=== PATIENT | female | born 2000 | race Caucasian/White ===

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

== ENCOUNTER → 2018-03-03 | Outpatient (CLI) | payer OTHER | LOC: LABWHC1 15:08 | PROVIDERS: ATTEND Obstetrics & Gynecology | DX: N92.6 Irregular menstruation, unspecified (principal) | CPT/HCPCS: 36415; 84702 ==

== ENCOUNTER → 2018-10-27 | Outpatient (CLI) | payer OTHER | END | disposition home or self-care (01) | LOC: LABWHC1 13:52 | PROVIDERS: ATTEND Obstetrics & Gynecology | DX: N92.6 Irregular menstruation, unspecified (principal) | CPT/HCPCS: 36415; 84702 ==

== ENCOUNTER → 2019-05-17 | Outpatient (CLI) | payer OTHER | LOC: LABWHC1 11:58 | PROVIDERS: ATTEND Obstetrics & Gynecology | DX: N92.6 Irregular menstruation, unspecified (principal) | CPT/HCPCS: 36415; 84702 ==

== ENCOUNTER 2019-10-22 14:05 | Emergency (ER) | payer OTHER ==
[2019-10-22 14:09] VITALS: TEMP 97.8
--- NOTE | 2019-10-22 14:36 | ED ---
Chest Pain HPI - General Chief Complaint: Chest Pain Stated Complaint: chest pains Time Seen by Provider: 10/22/19 14:13 Source: patient Mode of arrival: ambulatory Limitations: no limitations - History of Present Illness Initial Comments: 18-year-old female who states she is currently but not sure how far long as she just took test presenting to the emergency department today for chest pain. States since last night she has had pain in the center of her chest that feels like a thumb pushing into her. Patient denies leg swelling, calf pain, hemoptysis, pain with deep breathing, patient denies ripping tearing pain or back pain. Denies nausea, jaw or arm pain, denies fevers, SOB, cough. Patient denies DM/HTN, cardiac history, Denies IVDU or cocaine use. Patient denies specific alleviating or aggrevating factors. Denies vaginal bleeding, or pelvic pain. Remaining ROS (-). Upon arrival patient appears well there is no signs of acute distress. - Related Data Home Medications Medication Instructions Recorded Confirmed Mdo-Kelh-Javnu Acid 1 cap PO DAILY 06/25/17 11/01/17 [-U Capsule (formulary)] Acetaminophen Tab [Tylenol Tab] 650 mg PO Q4H 11/01/17 11/01/17 Previous Rx's Medication Instructions Recorded HYDROcodone/APAP 7.5-325MG [[place] 1 each PO Q6H PRN #12 tab 11/28/17 7.5-325] Ibuprofen [Motrin] 600 mg PO Q6HR PRN #60 tab 11/28/17 Allergies Allergy/AdvReac Type Severity Reaction Status Date / Time No Known Allergies Allergy Verified 10/22/19 14:09 Review of Systems ROS Statement: Those systems with pertinent positive or pertinent negative responses have been documented in the HPI. ROS Other: All systems not noted in ROS Statement are negative. Past Medical History Past Medical History: No Reported History Additional Past Medical History / Comment(s): Obstetric history: This is her first and she's had care with Dr. Benedict since 13 weeks. At her anatomy ultrasound she was noted to have a shortened cervix at 27 mm, she went to [facility] for evaluation and they found her cervix to be 31 mm, no further workup was needed after 2 visits of no cervical change. Blood type O positive, antibody is negative, HIV nonreactive, rubella immune, RPR nonreactive, hepatitis B negative, toxoplasmosis negative. History of Any Multi-Drug Resistant Organisms: None Reported Past Surgical History: Section Additional Past Surgical History / Comment(s): egd/colonoscopy Past Psychological History: Anxiety, Bipolar, Depression Smoking Status: Current every day smoker Past Alcohol Use History: None Reported Past Drug Use History: None Reported General Exam - General Exam Comments Initial Comments: General: The patient is awake and alert, in no distress, and does not appear acutely ill. Eye: Pupils are equal, round and reactive to light, extra-ocular movements are intact. No nystagmus. There is normal conjunctiva bilaterally. No signs of icterus. Ears, nose, mouth and throat: There are moist mucous membranes and no oral le sions. Neck: The neck is supple, there is no tenderness or JVD. Cardiovascular: There is a regular rate and rhythm. No murmur, rub or gallop is appreciated. Respiratory: Lungs are clear to auscultation, respirations are non-labored, breath sounds are equal. No wheezes, stridor, rales, or rhonchi. No pain with deep inspiration Gastrointestinal: Soft, non-distended, non-tender abdomen without masses or organomegaly noted. There is no rebound or guarding present. Musculoskeletal: Normal ROM, no tenderness. Strength 5/5. Sensation intact. Radialp ulses equal bilaterally 2+. Neurological: A&O x 3. CN II-XII intact, There are no obvious motor or sensory deficits. Coordination appears grossly intact. Speech is normal. Skin: Skin is warm and dry and no rashes. No leg swelling, no calf pain. Psychiatric: Cooperative, appropriate mood & affect, normal judgment. Limitations: no limitations Course Vital Signs 10/22/19 10/22/19 10/22/19 14:07 14:17 14:30 Temperature 97.8 F Pulse Rate 104 H 104 H 101 H Respiratory 18 15 15 Rate Blood Pressure 109/43 106/66 O2 Sat by Pulse 100 100 100 Oximetry 10/22/19 10/22/19 10/22/19 15:00 15:30 16:00 Temperature Pulse Rate 96 97 96 Respiratory 14 12 14 Rate Blood Pressure 106/66 105/68 105/68 O2 Sat by Pulse 100 100 100 Oximetry 10/22/19 16:30 Temperature Pulse Rate Respiratory Rate Blood Pressure 126/80 O2 Sat by Pulse Oximetry Chest Pain MDM - MDM 18yo female presenting for CP, no SOB. Dimer (-). no peripheral evidence of DVT. Patient refused CTA i discussed how she is high risk but she states she does not want to go forward with the CTA given the risk of radiation to the baby, I did state that avoiding the CTA could risk her life/disability but she continued to refuse stating the pain is better. No IUP at this time whihc is consistent with patient HCG. No pelvic pain. Patient will be discharge with PCP and OBGYN f/u. Repeat HCG was ordered. Strict return parameters for SOB, or return of CP were discussed patient verbalized understanding and was discharged appearing well after discussing hx, and laboratory/vital signs of attending provider. Disposition Clinical Impression: Chest pain Disposition: HOME SELF-CARE Condition: Good Instructions (If sedation given, give patient instructions): Chest Pain (ED) Additional Instructions: Please use medication as discussed. Please follow-up with family doctor in the next 2 days-IMMEDIATE return for worsening symptoms, shortness of breath, fevers, leg swelling. Follow-up with OBGYN, repeat HCG in 2 days. Please return to emergency room if the symptoms increase or worsen or for any other concerns. Is patient prescribed a controlled substance at d/c from ED?: No Referrals: Madhu Chan MD [Primary Care Provider] - 1-2 days Tremayne Castellanos MD [STAFF PHYSICIAN] - 1-2 days Bell Rahman DO [Doctor of Osteopathic Medicine] - 1-2 days Time of Disposition: 16:53
[2019-10-22 15:20] LABS: Basophils # (A) 0.1 k/uL (0-0.2); Basophils % (A) 1 %; Eosinophils # (A) 0.2 k/uL (0-0.7); Eosinophils % (A) 2 %; HCT 41.8 % (34.0-46.0); HGB 13.2 gm/dL (11.4-16.0); Lymphocytes # (A) 3.6 k/uL (1.0-4.8); Lymphocytes % (A) 40 %; MCHC 31.5 g/dL (31.0-37.0); Mean Platelet Volume 7.3; Monocytes # (A) 0.5 k/uL (0-1.0); Monocytes % (A) 6 %; Neutrophils # (A) 4.6 k/uL (1.3-7.7); Neutrophils % (A) 50 %; Platelet Count 294 k/uL (150-450); RBC 4.55 m/uL (3.80-5.40); RDW 12.5 % (11.5-15.5); WBC 9.2 k/uL (4.0-11.0)
--- NOTE | 2019-10-22 15:30 | US ---
EXAMINATION TYPE: Transabdominal DATE OF EXAM: 10/22/2019 3:16 PM COMPARISON: NONE CLINICAL HISTORY: Patient states she had 5 positive home tests. No available labs. EXAM PERFORMED: Transabdominal (TA) EXAM MEASUREMENTS: GESTATIONAL AGE / DATING Physician Established: Not yet established Dates by LMP: Patient hasn't had a normal period in 2 Dates by First Scan: No previous this is first scan Dates by Current Scan for: Unable to date by camacho weiss's study MATERNAL ANATOMY Uterus: 7.0 x 3.6 x 4.8cm Right Ovary: 2.3 x 2.2 x 1.7cm Left Ovary: 2.7 x 1.8 x 1.7cm Post CDS / Adnexa: wnl Presence of free fluid: no GESTATION / SURVEY IUP: No IUP seen at this time Date of LMP: Patient hasn't had a normal period in 2 years Beta HcG (if available): Not available at this time Endometrium is not thickened measuring only 5 mm on transabdominal imaging IMPRESSION: No sonographic evidence of current intrauterine . Correlation with serum beta hC G level is necessary as there is also no endometrial thickening that would be expected in early pregn girish. Ectopic remains in the differential given no intrauterine is seen. Short-te rm serum serial beta hCGs and follow-up pelvic ultrasound in 7-10 days are recommended.
[2019-10-22 15:41] LABS: ALT 15 U/L (4-34); AST 18 U/L (14-36); African American GFR (CKD) >90 (>60 ml/min/1.73 sqM); Albumin 3.9 g/dL (3.5-5.0); Alkaline Phosphatase 73 U/L (38-126); Anion Gap 8 mmol/L; Blood Urea Nitrogen 14 mg/dL (7-17); Calcium 8.9 mg/dL (8.4-10.2); Carbon Dioxide 24 mmol/L (22-30); Chloride 107 mmol/L (98-107); Glucose 65 mg/dL (74-99); Non-African American GFR(CKD) >90 (>60 ml/min/1.73 sqM); Sodium 139 mmol/L (137-145); Total Bilirubin 0.2 mg/dL (0.2-1.3); Total Protein 6.6 g/dL (6.3-8.2)
[2019-10-22 15:57] LABS: HCG,Quantitative Serum 187.4 mIU/mL
--- NOTE | 2019-10-22 16:39 | XR ---
EXAMINATION TYPE: XR chest 2V DATE OF EXAM: 10/22/2019 COMPARISON: 11/02/2013 HISTORY: 18-year-old female with chest pain TECHNIQUE: PA and lateral views FINDINGS: The cardiomediastinal silhouette, aorta, and pulmonary vasculature are within normal limits. Lungs an d pleural spaces are clear. IMPRESSION: No acute cardiopulmonary process.
[2019-10-22 16:50] VITALS: BP 126/80; PULSE 96; RESP 14
== END 2019-10-22 17:14 | disposition home or self-care (01) ==
LOC: EC 14:05
DX: R07.9 Chest pain, unspecified (principal); F17.200 Nicotine dependence, unspecified, uncomplicated
CPT/HCPCS: 36415; 71046; 76801; 80053; 84484; 84702; 85025; 85379; 93005; 99285

== ENCOUNTER → 2022-07-18 | Outpatient (CLI) | payer OTHER | END | disposition home or self-care (01) | LOC: LABWHC1 10:29 | PROVIDERS: ATTEND Physician Assistant | DX: F15.20 Other stimulant dependence, uncomplicated (principal); F17.200 Nicotine dependence, unspecified, uncomplicated | CPT/HCPCS: 36415; 84702 ==

== ENCOUNTER → 2024-03-11 | Outpatient (CLI) | payer OTHER ==
--- NOTE | 2024-03-11 10:23 | MR ---
MRI brain without contrast. HISTORY: Migraine headaches. COMPARISON: None. TECHNIQUE: Multiecho multiplanar images the brain were obtained without contrast. FINDINGS: On the T1-weighted sagittal images, the midline structures including the craniovertebral junction rel ationships are normal. The ventricles, basal cisterns and sulci over the convexities are within normal limits and there is n o mass effect or shift of the midline structures. No abnormal signal intensity is seen throughout the brain parenchyma. Based on the diffusion-weighted images, there is no diffusion restriction or acute ischemic event. The posterior fossa including the brainstem, fourth ventricle and cerebellar pontine angles appear no rmal. The intraorbital contents appear normal and symmetric. Visualized paranasal sinuses and mastoid air c ells are well aerated. IMPRESSION: No significant abnormality seen. [facility], , 03/11/2024 10:21 AM
== END | disposition home or self-care (01) ==
LOC: RADMRIMAIN 07:33
PROVIDERS: ATTEND Family Medicine
DX: G43.909 Migraine, unspecified, not intractable, without status migrainosus (principal)
CPT/HCPCS: 70551

== ENCOUNTER → 2024-04-15 | Outpatient (CLI) | payer OTHER ==
--- NOTE | 2024-04-15 16:22 | US ---
EXAMINATION TYPE: US transvaginal DATE OF EXAM: 04/15/2024 COMPARISON: 10/22/2019 CLINICAL INDICATION: Female, 23 years old with history of N92.0 FREQ MENSTRUATION; Hx 1 C section. . TECHNIQUE: Transvaginal (TV). FINDINGS: Date of LMP: Unknown EXAM MEASUREMENTS: Uterus: 7.2 x 4.1 x 3.5 cm Endometrial Stripe: Limited, measured at 0.6 cm Right Ovary: 3.3 x 1.8 x 1.9 cm Left Ovary: 3.0 x 1.8 x 1.7 cm 1. Uterus: Anteverted. Heterogeneous. 2. Endometrium: *Limited visibility, measured at 0.6 cm 3. Right Ovary: Appears wnl 4. Left Ovary: Appears wnl 5. Bilateral Adnexa: Prominent vessels seen in lateral left adnexa measuring 6 mm. 6. Posterior cul-de-sac: Appears wnl IMPRESSION: 1. Uterus is somewhat heterogeneous echo pattern which is a nonspecific finding can be associated wit h adenomyosis. Endometrium is limited in visualization. Consider follow-up MRI as clinically warrante d. 2. No adnexal mass or free fluid. Prominent vessels in the left adnexa may represent mild pelvic vari leslie. [facility], , 04/15/2024 4:20 PM
== END | disposition home or self-care (01) ==
LOC: RADUSWWP 15:17
PROVIDERS: ATTEND Family Medicine
DX: N92.0 Excessive and frequent menstruation with regular cycle (principal)
CPT/HCPCS: 76830